=== PATIENT | female | born 1945 | race Caucasian/White ===

== ENCOUNTER → 2016-07-07 | Outpatient (CLI) | payer MEDICARE, OTHER ==
[2015-02-01 13:00] VITALS: BP 123/50
[~2016-07-07] MED LIST: AMLO1CAP12 PO; AMLO1CAP15 PO; ATOR40TA59 PO; FLUO40CA2 PO; FURO40TA4 PO; HYDR-2666 PO; INSU100C SQ; INSU100I13 SQ; METF10002 PO; NITR0.4T6 SL; OMEP40CA5 PO; POTA10CA PO
--- NOTE | 2016-07-07 17:10 | RAD ---
Ultrasound of the thyroid gland 07/07/2016 Clinical history: Follow-up thyroid nodule. Technique: A real-time ultrasound examination of the thyroid gland was performed. Multiple images were obtained. Findings: Comparison study is dated 10/10/2013. The thyroid gland is mildly enlarged and heterogeneous. The right lobe of the thyroid gland measures 5.0 x 1.8 x 1.5 cm in longitudinal, transverse, and AP dimensions. The left lobe of the thyroid gland measures 4.7 x 1.8 x 1.6 cm in size. The isthmus measures 2.4 mm in thickness. Within the inferior aspect of the left lobe of the thyroid gland a hypoechoic nodule is seen which measures 1.2 cm in size. It has decreased in size slightly since the previous examination where it measured 1.5 cm in greatest diameter. No new abnormality of the thyroid gland is seen. Impression: 1.2 cm hypoechoic nodule is seen involving the inferior aspect of the left lobe of thyroid gland. This has decreased in size slightly since the previous examination. No new nodule is seen.
== END | disposition home or self-care (01) ==
LOC: US 13:20
PROVIDERS: ATTEND Family Medicine
DX: E04.1 Nontoxic single thyroid nodule (principal)
CPT/HCPCS: 76536

== ENCOUNTER 2019-01-27 17:24 | Emergency (ER) | payer MEDICARE, OTHER ==
[~2019-01-27] VITALS: Ht 162.6 cm; Wt 112.5 kg
[~2019-01-27 17:24] MED LIST changes: -AMLO1CAP12 PO; +AMLO1CAP13 PO; -AMLO1CAP15 PO; +AMLO1CAP54 PO; -HYDR-2666 PO; +HYDR-2761 PO; -METF10002 PO; +METF10007 PO; +NITR0.4T22 SL; -NITR0.4T6 SL; +OMEP40CA45 PO; -OMEP40CA5 PO; -POTA10CA PO; +POTA10TA12 PO
--- NOTE | 2019-01-27 18:14 | PHYS DOC ---
Past Medical History Past Medical History: Arthritis, Diabetes-Type II, GERD, Hypertension, TIA (TWAN ORTIZ APRN) Past Surgical History: Hysterectomy, Tonsillectomy, Other Additional Past Surgical Histo: KNEE,C-SPINE,RECTOCELE (TWAN ORTIZ APRN) Alcohol Use: None Drug Use: None (TWAN ORTIZ APRN) Attending Signature I have participated in the care of this patient and I have reviewed and agree with all pertinent clinical information above including history, exam, and recommendations. (NENA MENDOSA MD) Adult General Chief Complaint Chief Complaint: MECHANICAL FALL HPI HPI Patient is a 73 year old female who presents with fell at 1300 after slipping when getting out of the shower. Patient hit the left back of head without loc, dizziness, nausea, vomiting, visual changes, numbness or tingling. Patient also injured her right hip, although she states her right hip had began hurting her 2 days ago. Patient states she can not bare all her weight on her right hip. She also complains of right knee pain and left knee pain from a fall 2 weeks ago. (TWAN ORTIZ APRN) Review of Systems Review of Systems Musculoskeletal: Right rib pain, Right paraspinal back pain or Left knee, Right hip and knee joint pain [] Neurologic: Left back of head tenderness. Denies headache, focal weakness or sensory changes [] All other systems were reviewed and found to be within normal limits, except as documented in this note. (TWAN ORTIZ APRN) Current Medications Current Medications Current Medications Medications (Trade) Dose Ordered Sig/Tatiana Start Time Stop Time Status Last Admin Dose Admin Orphenadrine Citrate (Norflex) 60 mg 1X ONCE 01/27/19 18:15 01/27/19 18:16 DC 01/27/19 18:33 60 MG (NENA MENDOSA MD) Allergies Allergies Allergies Coded Allergies Type Severity Reaction Last Updated Verified Yossulo-Szx-Bqa Reductase Inhibitor Allergy Intermediate Unknown 02/01/15 Yes ibuprofen Allergy Intermediate 02/01/15 Yes tetracycline Allergy Intermediate 02/01/15 Yes (NENA MENDOSA MD) Physical Exam Physical Exam Constitutional: Well developed, well nourished, no acute distress, non-toxic appearance. [] HENT: Normocephalic, atraumatic, bilateral external ears normal, oropharynx moist, no oral exudates, nose normal. Left back of head tenderness.[] Eyes: PERRLA, EOMI, conjunctiva normal, no discharge. [] Neck: Normal range of motion, no tenderness, supple, no stridor. [] Cardiovascular:Heart rate regular rhythm, no murmur [] Lungs & Thorax: Bilateral breath sounds clear to auscultation [] Abdomen: Bowel sounds normal, soft, no tenderness, no masses, no pulsatile masses. [] Skin: Warm, dry, no erythema, no rash. [] Back: No tenderness, no CVA tenderness. [] Extremities: Right lower back and lateral hip tenderness, no cyanosis, no clubbing, ROM intact, no edema. [] Neurologic: Alert and oriented X 3, normal motor function, normal sensory function, no focal deficits noted. [] Psychologic: Affect normal, judgement normal, mood normal. [] (TWAN ORTIZ APRN) Current Patient Data Vital Signs Vital Signs Date Time Temp Pulse Resp B/P (MAP) Pulse Ox O2 Delivery O2 Flow Rate FiO2 01/27/19 20:38 70 19 95 01/27/19 17:52 97.9 169/79 (109) Room Air 97.9 (NENA MENDOSA MD) EKG EKG [] (TWAN ORTIZ APRN) Radiology/Procedures Radiology/Procedures [] (TWAN ORTIZ APRN) Impressions: [facility] [address] [place] [address] IMAGING REPORT Signed PATIENT: OLI LIMA ACCOUNT: [id number] : 1945 LOCATION: ER AGE: 73 SEX: F EXAM STATUS: REG ER ORD. PHYSICIAN: TWAN ORTIZ APRN REASON: fall PROCEDURE: RIBS RIGHT AND PA CHEST EXAM: 1. Frontal chest with 4 view right rib series. 2. Pelvis with two-view right hip. 3. Bilateral knees 4 views. HISTORY: Pain after fall. COMPARISON: None. FINDINGS: There are no confluent infiltrates. There is no pneumothorax or pleural effusion. The heart is not enlarged. There are atherosclerotic calcifications of the aorta. There are no displaced right rib fractures. No fractures are appreciated within the pelvis or either proximal femur. The joint spaces and alignment of both hips are maintained. There are moderate degenerative changes at the pubic symphysis and within the lower lumbar spine. No fractures are appreciated in either knee. There is mild tricompartmental osteoarthritis on the left with a small joint effusion. There is no clear effusion or degenerative change on the right. IMPRESSION: 1. No confluent infiltrates. No displaced right rib fractures. 2. No fractures within the pelvis, right hip or either knee. 3. Mild tricompartmental osteoarthritis of the left knee. Electronically signed by: Shalom Dalal MD (01/27/2019 7:54 PM) [facility] DICTATED and SIGNED BY: SHER DALAL MD DATE: 01/27/191953 [facility] [address] [place] [address] IMAGING REPORT Signed PATIENT: OLI LIMA ACCOUNT: [id number] : 1945 LOCATION: ER AGE: 73 SEX: F EXAM STATUS: REG ER ORD. PHYSICIAN: TWAN ORTIZ APRN REASON: fall PROCEDURE: CT HEAD AND CERVICAL SPINE WO Exam: CT head and cervical spine without contrast INDICATION: Fall TECHNIQUE: Sequential axial images through the head and cervical spine were obtained without the administration of IV contrast. Comparisons: None FINDINGS: Head: No focal parenchymal lesion or hemorrhage is identified. There is no midline shift or sulcal effacement. No acute vascular territory infarction is identified. Hernandez-white distinction is preserved. The ventricular system is within normal limits without compression hydrocephalus. The basal cisterns are well maintained. There is mucosal thickening within the left sphenoid sinus. The visualized portions of the paranasal sinuses and mastoid air cells are well-pneumatized. No acute fractures. Cervical spine: There is straightening of the cervical spine which may be positional. Vertebral body heights are well-maintained. Fracture to the cervical spine is not identified. There is multilevel spondylotic change in the cervical spine with degenerative disc disease greatest at C5-C6 and C6-C7. Mild bilateral facet arthropathy is also noted to the cervical spine. Visualized paraspinal soft tissues are unremarkable. IMPRESSION: 1. No acute intracranial abnormality. 2. Negative CT C-spine for acute traumatic injury. Exposure: One or more of the following in the visualized dose reduction techniques were utilized for this examination: 1. Automated exposure control 2. Adjustment of the MA and/or KV according to patient size Use of iterative of reconstructive technique Electronically signed by: Lashay Park MD (01/27/2019 8:07 PM) [facility] [id number] DICTATED and SIGNED BY: LASHAY PARK MD DATE: 01/27/192006 (TWAN ORTIZ APRN) Course & Med Decision Making Course & Med Decision Making Bilateral hips ROM is intact but painful and patient moves the extremity herself. Bilateral knees have intact ROM but there is pain and she moves the extremities herself. Both extremities are strong and equal. No swelling, bruising or deformity to any extremity. No rib pain with palpation and no bruising or deformities. No spinal bony tenderness. Patient states the pain is a strong hard pain and hard to explain. Patient took 2 hydrocodones at 1400 today. Patient rates her pain a 5/10. Patient has tenderness to the left back of her head but there is no bumps, bruising, abrasion, or laceration and no deformity to her skull. Lungs are clear to auscultation. Denies neck pain, spinal pain, pelvis pain, abdominal pain, nausea, vomiting, chest pain, soa, dizziness, visual changes, numbness or tingling, headache. Alert and oriented. Skin pink warm and Dry. PERRLA. Speaks in full clear sentences. CT and x-rays are negative. Patient is discharged home with pain medication. (TWAN ORTIZ APRN) Dragon Disclaimer Dragon Disclaimer This electronic medical record was generated, in whole or in part, using a voice recognition dictation system. (TWAN ORTIZ APRN) Departure Departure Impression: Primary Impression: Contusion Disposition: HOME, SELF-CARE Condition: STABLE Referrals: BOOM VALDEZ MD (PCP) Patient Instructions: Arthritis, Nonspecific, Contusion, Fall Prevention and Home Safety Additional Instructions: Follow-up with her primary care provider. Take medications as prescribed. Use a heating pad or ice to help with pain. Scripts Hydrocodone Bit/Acetaminophen (HYDROCODONE-APAP 5-325 ) 1 Tab Tablet 1 TAB PO PRN Q6HRS PRN for PAIN, #8 TAB 0 Refills Prov: TWAN ORTIZ APRN 01/27/19 Problem Qualifiers Primary Impression: Contusion Encounter type: initial encounter Contusion area: hip Laterality: right Qualified Codes: S70.01XA - Contusion of right hip, initial encounter TWAN ORTIZ APRN Jan 27, 2019 18:14 NENA MENDOSA MD Jan 28, 2019 18:16
[2019-01-27] MEDS ORDERED: ORPHENADRINE CITRATE 60 MG/2 ML VIAL. IM ONE (18:15)
--- NOTE | 2019-01-27 19:57 | RAD ---
EXAM: 1. Frontal chest with 4 view right rib series. 2. Pelvis with two-view right hip. 3. Bilateral knees 4 views. HISTORY: Pain after fall. COMPARISON: None. FINDINGS: There are no confluent infiltrates. There is no pneumothorax or pleural effusion. The heart is not enlarged. There are atherosclerotic calcifications of the aorta. There are no displaced right rib fractures. No fractures are appreciated within the pelvis or either proximal femur. The joint spaces and alignment of both hips are maintained. There are moderate degenerative changes at the pubic symphysis and within the lower lumbar spine. No fractures are appreciated in either knee. There is mild tricompartmental osteoarthritis on the left with a small joint effusion. There is no clear effusion or degenerative change on the right. IMPRESSION: 1. No confluent infiltrates. No displaced right rib fractures. 2. No fractures within the pelvis, right hip or either knee. 3. Mild tricompartmental osteoarthritis of the left knee. Electronically signed by: Shalom Dalal MD (01/27/2019 7:54 PM) [facility]
--- NOTE | 2019-01-27 20:10 | RAD ---
Exam: CT head and cervical spine without contrast INDICATION: Fall TECHNIQUE: Sequential axial images through the head and cervical spine were obtained without the administration of IV contrast. Comparisons: None FINDINGS: Head: No focal parenchymal lesion or hemorrhage is identified. There is no midline shift or sulcal effacement. No acute vascular territory infarction is identified. Hernandez-white distinction is preserved. The ventricular system is within normal limits without compression hydrocephalus. The basal cisterns are well maintained. There is mucosal thickening within the left sphenoid sinus. The visualized portions of the paranasal sinuses and mastoid air cells are well-pneumatized. No acute fractures. Cervical spine: There is straightening of the cervical spine which may be positional. Vertebral body heights are well-maintained. Fracture to the cervical spine is not identified. There is multilevel spondylotic change in the cervical spine with degenerative disc disease greatest at C5-C6 and C6-C7. Mild bilateral facet arthropathy is also noted to the cervical spine. Visualized paraspinal soft tissues are unremarkable. IMPRESSION: 1. No acute intracranial abnormality. 2. Negative CT C-spine for acute traumatic injury. Exposure: One or more of the following in the visualized dose reduction techniques were utilized for this examination: 1. Automated exposure control 2. Adjustment of the MA and/or KV according to patient size Use of iterative of reconstructive technique Electronically signed by: Lashay Hugo MD (01/27/2019 8:07 PM) [facility] [place]
[2019-01-27 20:38] VITALS: BP 164/72
[2019-01-27] MEDS ORDERED: HYDR-2761 PO (20:42)
== END 2019-01-27 21:08 | disposition home or self-care (01) ==
LOC: ER 17:24
DX: S70.01XA Contusion of right hip, initial encounter (principal); M54.5 Low back pain; R07.81 Pleurodynia; M25.561 Pain in right knee; R51 Headache; M19.90 Unspecified osteoarthritis, unspecified site; E11.9 Type 2 diabetes mellitus without complications; K21.9 Gastro-esophageal reflux disease without esophagitis; I10 Essential (primary) hypertension; Z86.73 Personal history of transient ischemic attack (TIA), and cerebral infarction without residual deficits; Z88.8 Allergy status to other drugs, medicaments and biological substances; Z88.6 Allergy status to analgesic agent; Z88.1 Allergy status to other antibiotic agents; W18.2XXA Fall in (into) shower or empty bathtub, initial encounter; Y93.89 Activity, other specified; Y92.89 Other specified places as the place of occurrence of the external cause; Y99.8 Other external cause status
CPT/HCPCS: 70450; 71101; 72125; 73502; 73564; 96372; 99284; J2360

== ENCOUNTER → 2019-04-13 | Day surgery (SDC) | payer MEDICARE, OTHER ==
[~2019-04-13] MED LIST changes: +ATOR20TA58 PO; +HYDROmorphone 2 MG/ML VIAL IV PRN; +IV RINGERS,LACTATED 1000ML 1,000 ML IV SCH; +LIDOCAINE 1% PF 2 ML VIAL. ID PRN; +MORPHINE SULFATE 2 MG/ML VIAL. IV PRN; +ONDANSETRON PF 4 MG/2 ML VIAL. IV PRN; +PROCHLORPERAZINE 10 MG/2 ML VIAL. IV PRN; +PROPOFOL 20 ML IV ONE; +PROPOFOL 60 ML IV ONE; +fentaNYL PF VIAL 100 MCG/2 ML VIAL IV PRN
[2019-04-13 10:45] VITALS: BP 140/61
--- NOTE | 2019-04-13 11:07 | PREOP HP ---
DATE OF SERVICE: 04/13/2019 DATE OF PROCEDURE: 04/13/2019. REQUESTING PHYSICIAN: Jennifer Smith MD PRIMARY CARE PHYSICIAN: Jennifer Smith MD1 REASON FOR PROCEDURE: Follow up Varela's esophagus, abnormal CT, abdominal pain and history of colon polyps. HISTORY OF PRESENT ILLNESS: This is a 73-year-old female who has a past medical history of a CT scan showing a duodenal diverticulum. She also has a history of Varela's esophagus and colon polyps. ALLERGIES: 1. IBUPROFEN. 2. TETRACYCLINE. PAST MEDICAL HISTORY: 1. Osteoarthritis. 2. Hypercholesterolemia. 3. Diabetes. FAMILY MEDICAL HISTORY: No colon cancer. SOCIAL HISTORY: She is a former smoker. She denies alcohol or IV drug use. MEDICATIONS: MAR reviewed. REVIEW OF SYSTEMS: A 13-point review of systems was done and is positive as per HPI and otherwise negative. PHYSICAL EXAMINATION: GENERAL: This is a well-developed, well-nourished, obese female, in no apparent distress. HEENT: Oropharynx is clear. CARDIOVASCULAR: S1, S2. LUNGS: Clear to auscultation bilaterally. ABDOMEN: Obese, soft, nontender, nondistended. EXTREMITIES: No edema. NEUROLOGIC: Awake, alert and oriented x 3. ASSESSMENT: 1. History of colon polyps. 2. Abnormal CT. 3. Abdominal pain. PLAN: Risks and benefits of both upper and lower endoscopy were explained and she agreed to proceed. СВЕТЛАНА HUSSEIN MD DR: GEOVANNY/linnea JOB#: [id number] / [id number]
--- NOTE | 2019-04-14 17:06 | PATHOLOGY ---
[facility] Accession Number: [id number] . 01 Material submitted: . PART A: duodenum - FOURTH PORTION DUODENUM BIOPSY. Modifiers: fourth PART B: stomach - GASTRIC ANTRUM AND BODY BIOPSY PART C: esophagus - DISTAL ESOPHAGUS BIOPSY. Modifiers: distal PART D: colon - ASCENDING COLON POLYP BIOPSY. Modifiers: ascending PART E: colon - RANDOM COLON BIOPSY . 01 Clinical history: . Abnormal CT, abdominal pain . 02 Diagnosis: A. Duodenal biopsies, fourth portion duodenum and duodenal bulb: - No significant pathologic abnormalities. . B. Gastric biopsies, gastric antrum and gastric body: - Chronic gastritis, mild to moderate. . C. Esophageal biopsies, distal esophagus: - Segments of hyperplastic squamous esophageal mucosa with focally contiguous and separate segments of columnar-lined mucosa showing chronic inflammation and focal intestinal metaplasia with goblet cells consistent with Varela's change. . D. Colon biopsies, ascending colon polyps: - Tubular adenomas (3). - Melanosis coli. . E. Colonic mucosa, random colon biopsies: - Melanosis coli. LBQ 04/14/2019 1436 Local . 02 Comment: Sections of the fourth portion duodenum and duodenal bulb biopsies reveal segments of duodenal and small intestine mucosa. Where best oriented, the mucosal villi show no sprue-like changes or significant inflammatory changes. . Sections of the gastric biopsy reveal segments of gastric body and gastric antral mucosa. The gastric body mucosa shows congestion and mild superficial chronic inflammation. The gastric antral mucosa shows congestion and mild to moderate chronic inflammation. A properly controlled immunoperoxidase stain for Helicobacter is negative for Helicobacter organisms. . Sections of the distal esophageal biopsy reveal segments of hyperplastic squamous esophageal mucosa with focally contiguous and separate segments of columnar-lined mucosa showing moderate chronic inflammation and focal intestinal metaplasia with goblet cells consistent with Varela's change. There is no dysplasia or evidence of malignancy. . Sections of the ascending colon biopsies reveal three segments of tubular adenoma and a single segment of colonic mucosa containing two small mucosa associated lymphoid aggregates. There is also melanosis coli. There is no high grade dysplasia or evidence of malignancy. . Sections of the random colon biopsy reveal segments of colonic mucosa showing mild melanosis coli. There is no evidence of a chronic destructive colitis, lymphocytic colitis, or collagenous colitis. (JPM/db; 04/14/2019) . Special stain performed: Immunoperoxidase stain for Helicobacter on B1 . 02 Electronically signed: . Alphonse Kong MD, Pathologist NPI- [id number] . 01 Gross description: . A. Received in formalin labeled "Precious Melo, fourth portion duodenum/duodenal bulb biopsy" are five segments of bateman soft tissue measuring 1.1 x 0.9 x 0.4 cm in aggregate dimensions and ranging from 0.1 to 0.5 cm in maximum dimension. The specimen is submitted entirely in cassette A1. . B. Received in formalin labeled "Precious Melo, gastric antrum body BX," are 2 segments of bateman soft tissue measuring 0.8 x 0.2 x 0.2 cm in aggregate dimensions and ranging from 0.3 to 0.5 cm in maximum dimension. The specimen is submitted entirely in cassette B1. . C. Received in formalin labeled "Precious Melo, distal esophagus BX," are 5 segments of bateman soft tissue measuring 1.1 x 0.6 x 0.3 cm in aggregate dimensions and ranging from 0.2 to 0.4 cm in maximum dimension. The specimen is submitted entirely in cassette C1. . D. Received in formalin labeled "Precious Melo, ascending colon polyp BX," are 4 segments of bateman soft tissue measuring 1.5 x 0.8 x 0.3 cm in aggregate dimensions and ranging from 0.4 to 0.5 cm in maximum dimension. The specimen is submitted entirely in cassette D1. . E. Received in formalin labeled "Precious Melo, random colon BX," are 4 segments of bateman soft tissue measuring 1.3 x 0.8 x 0.3 cm in aggregate dimensions and ranging from 0.3 to 0.7 cm in maximum dimension. The specimen is submitted entirely in cassette E1. (TSD; 04/13/2019) TOB/TOB 04/14/2019 1419 Local . 02 Pathologist provided ICD-10: K29.50, K20.9, D12.2, K63.89 . 02 CPT . 349301, [id number], [id number], [id number], [id number], [id number] Specimen Comment: A courtesy copy of this report has been sent to [phone], [phone] Specimen Comment: [id number] Specimen Comment: Report sent to / DR VALDEZ Performed at: 01 [facility] [address] [place] [address] [address], [place] [id number] MD Royal Aquino MD Phone: [phone] Performed at: 02 [facility] [address] [place], [place] [id number] MD Alphonse Kong MD Phone: [phone]
== END ==
LOC: ENDOS 07:57
PROVIDERS: ATTEND Internal Medicine Gastroenterology
DX: K59.00 Constipation, unspecified (principal); D12.2 Benign neoplasm of ascending colon; K29.50 Unspecified chronic gastritis without bleeding; K21.0 Gastro-esophageal reflux disease with esophagitis; K57.30 Diverticulosis of large intestine without perforation or abscess without bleeding; K44.9 Diaphragmatic hernia without obstruction or gangrene; K63.89 Other specified diseases of intestine; K64.0 First degree hemorrhoids; Z88.6 Allergy status to analgesic agent; Z88.1 Allergy status to other antibiotic agents; Z87.39 Personal history of other diseases of the musculoskeletal system and connective tissue; E78.00 Pure hypercholesterolemia, unspecified; E11.9 Type 2 diabetes mellitus without complications; Z79.84 Long term (current) use of oral hypoglycemic drugs; Z87.891 Personal history of nicotine dependence
CPT/HCPCS: 43239; 45380; J2704